=== PATIENT | female | born 1985 | race Caucasian/White ===

== ENCOUNTER → 2018-02-14 18:47 | Outpatient (CLI) | payer OTHER, SELFPAY ==
[2018-02-14 21:15] LABS: Chlamydia Trachomatis by PCR Negative (Negative); Neisserai gonorrhoeae by PCR Negative (Negative); Probe Check PASS; Sample Adequacy Control PASS; Specimen Processing Control PASS
[2018-02-19 10:36] LABS: HPV APTIMA, High Risk Negative (Negative)
== END ==
PROVIDERS: Family Provider Family Medicine; PCP Family Medicine; Visit Provider Nurse Practitioner Women's Health
DX: Z11.3 Encounter for screening for infections with a predominantly sexual mode of transmission (principal); Z12.4 Encounter for screening for malignant neoplasm of cervix
CPT/HCPCS: 87491; 87591; 88175; G0145

== ENCOUNTER → 2018-02-26 14:03 | Outpatient (CLI) | payer OTHER, SELFPAY | PROVIDERS: Visit Provider Physician Assistant Surgical | DX: J02.9 Acute pharyngitis, unspecified (principal) | CPT/HCPCS: 87081 ==

== ENCOUNTER → 2019-08-04 08:06 | Outpatient (CLI) | payer OTHER, SELFPAY ==
[2018-02-26 16:52] VITALS: BMI 45.4
[2019-08-04 09:49] LABS: Ferritin 53 ng/mL (8-252); Free T3 2.7 pg/mL (2.18-3.98); Iron 24 ug/dL (50-170); T4 Free Direct 1.01 ng/dL (0.76-1.46); Thyroid Stim Hormone (TSH) 1.81 uIU/mL (0.358-3.74)
[2019-08-04 10:52] LABS: Vitamin B12 393 pg/mL (211-911); Vitamin D,25 Hydroxy 15.2 ng/mL (29.95-100.01)
== END ==
PROVIDERS: Family Provider Family Medicine; PCP Family Medicine; Referring Provider Family Medicine; Visit Provider Family Medicine
DX: D64.9 Anemia, unspecified (principal); G25.81 Restless legs syndrome; E87.6 Hypokalemia
CPT/HCPCS: 36415; 82306; 82607; 82728; 83540; 84439; 84443; 84481

== ENCOUNTER 2019-12-26 11:01 | Emergency (ER) | payer OTHER, SELFPAY ==
[2019-11-06 17:19] VITALS: BMI 45.4
[2019-12-26 11:03] VITALS: BP 86/44; PULSE 83; RESP 17; TEMP 36.6; O2SAT 97; BMI 46.8
--- NOTE | 2019-12-26 11:17 | ED.VISSUMM ---
- ER Visit Summary Date of Service: 12/26/19 Chief Complaint: Dizziness History of Present Illness: The patient is a 34 F who presents with dizziness that began today while she was at work. Patient describes her dizziness as a swimming sensation in her head. Patient states this is worse with walking, standing, and movement of her head. Patient states it is better with sitting. Patient is on Zithromax for a recent upper respiratory infection. Patient denies any fevers or chills. Patient admits to recent cough and sore throat. Patient denies any tinnitus or hearing changes. Patient does admit to some nausea but denies any vomiting. Patient also admits to a headache. Physical Examination: Vital signs are stable. Patient is afebrile. Patient is in no acute distress. Pupils are equal, round, and reactive to light bilaterally. Extraocular muscles are intact. There is no nystagmus noted. Oral mucosa is pink and moist. Oropharynx is clear. Tympanic membranes are clear bilaterally. Neck is supple. Trachea is midline. There is no JVD noted. Heart was regular rate and rhythm. Lungs are clear and equal bilaterally. Abdomen is soft. Bowel sounds are normal. There is no tenderness. Cranial nerves II through XII are intact. There are no focal motor or sensory deficits noted. Test Results: CBC, comprehensive metabolic profile, urinalysis, and serum hCG were obtained and were all within normal limits. Orthostatic vital signs were obtained and were negative. CT scan of the brain was obtained. There is opacification of the right maxillary sinus and left sphenoid sinus but there is no acute intracranial abnormality. This was interpreted by the radiologist and reviewed by myself. Emergency Department Course and Treatment: Patient was given IV fluids. Patient was given a dose of meclizine. Patient was feeling better on reevaluation. Patient was instructed to drink plenty of fluids. Patient was given a prescription for meclizine to take as needed. Patient was instructed to follow-up with her primary care physician in 5-7 days. Patient understood and was agreeable with the plan. All questions were answered. Disposition: Discharge home Impression: Vertigo This note was generated with [employer] software. It may contain incorrect words, spelling, and punctuation that were not noted in review of the chart prior to signing ED Disposition - Plan for ED Patient: Disposition: Home or Assisted Living Diagnosis: Vertigo Instructions: VERTIGO, Unspecified Prescriptions: Meclizine HCl 25 mg PO TID PRN PRN #20 tab PRN Reason: Dizziness Prescription Printed Referrals: Sue Mayo DO [Primary Care Provider] - 5-7 Days
--- NOTE | 2019-12-26 11:20 | CT_ITS ---
STUDY: CT BRAIN WITHOUT CONTRAST REASON FOR EXAM: Female, 34 years old. HEADACHE, DIZZINESS, NAUSEA RADIATION DOSAGE (If Supplied By Facility): CTDIvol = ( 44.99 ) mGy, DLP = ( 745.49 ) mGycm TECHNIQUE: Transaxial CT imaging of the brain was performed without administration of intravenous contrast material. Individualized dose optimization techniques were used for this CT. COMPARISON: No relevant priors. FINDINGS: Normal soft tissue structures. Normal calvarium. Normal size ventricles and extra-axial spaces for the patient''s age. Normal white matter tracts of the cerebral hemispheres. Normal basal ganglia and thalami. Normal brainstem. Normal cerebellum. There is no intracranial hemorrhage. There are no findings of an acute ischemic infarction. Opacification of the right maxillary sinus. Partial opacification of the left sphenoid sinus. CT/Brain/Head without Contrast IMPRESSION: Opacification of the right maxillary sinus and partial opacification of the left sphenoid sinus. Electronically Signed: Fredis Elkins, at 12:08 EST , Service support ,
[2019-12-26 11:38] VITALS: BP 130/52; BP 131/69; BP 140/83; PULSE 75; PULSE 81; PULSE 88
[2019-12-26 11:43] LABS: Bacteria 0 SEEN /hpf (None Seen); Mucous, Urine 0 SEEN /hpf (<or=2+); Red Blood Cells-Urine 0 SEEN /hpf (0-5); White Blood Cells 0 SEEN /hpf (0-5)
[2019-12-26] MEDS: 0.9% Normal Saline 1,000 ML 1000 ML IV (11:50)
[2019-12-26 11:52] LABS: Absolute Lymphocyte Count 2.77 X10^3/uL (0.83-4.51); Absolute Neutrophil Count 7.6 X10^3/uL (2.0-7.7); Basophil# 0.04 X10^3/uL; Basophil% 0.4 % (0-1); Eosinophil# 0.11 X10^3/uL; Hematocrit 40.4 % (37-47); Hemoglobin 12.5 g/dL (12.0-15.0); Lymphocyte # 2.77 X10^3/ul (4.0); Mean Corp Hgb Conc 30.9 g/dL (32-36); Mean Corpuscular Hgb 25.2 pg (27.0-32.0); Mean Corpuscular Volume 81.3 fL (81-99); Mean Platelet Vol. 8.8 fl (6.2-12.0); Monocyte# 0.53 X10^3/uL; Monocyte% 4.8 % (0-10); NRBC Flagged by Analyzer 0 % (0-5); Neutrophil # 7.58 X10^3/uL (2.7-7.7); Neutrophil % 68.5 % (47-70); Platelet Count 416 K/mm3 (150-450); RBC Distribution Width CV 15.6 % (11.6-14.6); RBC Distribution Width SD 45.9 fl (35.1-43.9); Red Blood Count 4.97 M/mm3 (4.2-5.4); White Blood Count 11.1 K/mm3 (4.4-11.0)
[2019-12-26 12:01] LABS: Color, Urine Yellow (Yellow); Glucose, Dipstick Normal (Normal); Ketone-Dipstick Negative (Negative); Leukocyte Esterase-Dipstick Negative /ul (Negative); Nitrite-Dipstick Negative (Negative); Occult Blood-Urine 10 /ul (Negative); Protein-Dipstick Negative (Negative); Specific Gravity, Urine 1.015 (1.002-1.030); Urine Bilirubin Dipstick Negative (Negative); Urine Clarity Clear (Clear); Urine Urobilinogen Normal (Normal)
[2019-12-26 12:03] LABS: Internal QC Validated? YES +Cl - CLEAR BKGD; Pregnancy, Serum, hCG Quali. NEGATIVE Negative
[2019-12-26 12:06] LABS: ALB/GLOB Ratio 0.8 RATIO (0.9-2.4); AST(SGOT) 14 U/L (15-37); Alanine Aminotransfer ALT/SGPT 40 U/L (13-56); Albumin, Serum 3.3 g/dL (3.2-5.0); Alkaline Phosphatase 91 U/L (45-117); Anion Gap 5 (5-15); BUN 13 mg/dL (7-18); BUN/Creat Ratio 15.2 RATIO (10-20); Calcium,Total 8.9 mg/dL (8.5-10.1); Chloride 108 mmol/L (98-107); Creatinine, Serum 0.86 mg/dL (0.55-1.02); EST Glomerular Filtration Rate 81 mL/min (>60); Est Glom Filt Rate - Afr Amer 98 mL/min (>60); Estimated Creatinine Clearance 101.56 ml/min; Globulin 4.2 g/dL (2.2-4.2); Glucose 97 mg/dL (74-106); Potassium 3.6 mmol/L (3.5-5.1); Protein, Total 7.5 g/dL (6.4-8.2); Sodium Level 140 mmol/L (136-145)
[2019-12-26 12:20] LABS: Squamous Epithelial Cells - UA 0-5 SEEN /hpf (5-10)
[2019-12-26 12:42] VITALS: BP 132/64; PULSE 66; RESP 18; O2SAT 98
[2019-12-26] MEDS: Meclizine HCl 25 MG Tablet PO (12:45)
== END 2019-12-26 13:26 | disposition home or self-care (01) ==
PROVIDERS: Emergency Provider Emergency Medicine; PCP Family Medicine
DX: R42 Dizziness and giddiness (principal); R05 Cough; J02.9 Acute pharyngitis, unspecified; E66.9 Obesity, unspecified; I10 Essential (primary) hypertension; G43.909 Migraine, unspecified, not intractable, without status migrainosus; Z79.82 Long term (current) use of aspirin; Z79.899 Other long term (current) drug therapy
CPT/HCPCS: 70450; 80053; 81001; 84703; 85025; 96360; 99283; J7030; A4216

== ENCOUNTER → 2021-03-28 12:51 | Outpatient (CLI) | payer OTHER, SELFPAY ==
[2021-03-16 09:03] VITALS: BMI 46.2
--- NOTE | 2021-03-28 12:55 | ECHOD_ITS ---
Reason For Study: HTN, ARRHYTHMIA (ABN EKG) Procedure This was a 2D Doppler, Color Flow transthoracic echocardiogram. Exam performed in department. Left Ventricle Normal LV size. Left ventricular systolic function is normal. The estimated ejection fraction is 60 %. Normal diastology for age. No regional wall motion abnormalities noted. Right Ventricle Normal RV size. Normal systolic function. Atria Normal left atrium. Normal right atrium. Mitral Valve Normal mitral valve. Tricuspid Valve Normal tricuspid valve. Mild (1+) tricuspid valve insufficiency. Pulmonary artery systolic pressure is 28 mmHg. Aortic Valve Normal aortic valve. Trisinus/trileaflet aortic valve. Pulmonic Valve The pulmonic valve is not well visualized. Great Vessels Normal aortic root. The pulmonary artery is normal size. Normal inferior vena cava. Pericardium/Pleural No pericardial effusion. MMode/2D Measurements & Calculations LVIDd: 5.5 cm IVSd: 1.1 cm Ao root diam: 3.2 cm LVIDs: 3.7 cm LVPWd: 1.1 cm RVDd: 3.7 cm FS: 32.5 % LAV(MOD-bp): 58.0 ml LA A4 area: 19.0 cm2 LA dimension(2D): 4.5 cm LAV(MOD-bp) Indexed: 22.7 ml/m2 LAV(MOD-sp2): 60.7 ml LAV(MOD-sp4): 56.1 ml RA A4 area: 16.3 cm2 Time Measurements MV dec time: 0.17 sec Doppler Measurements & Calculations MV E max gus: 86.8 cm/sec Lat Peak E' Gus: 12.5 cm/sec Med Peak E' Gus: 9.2 cm/sec MV A max gus: 58.3 cm/sec E/E' lat: 6.9 E/E' med: 9.5 MV E/A: 1.5 Ao V2 max: 139.9 cm/sec LV V1 max: 98.0 cm/sec PA V2 max: 113.4 cm/sec Ao max P.8 mmHg LV V1 max P.8 mmHg TR max gus: 247.1 cm/sec TR max P.4 mmHg ECHO/Echo Complete Interpretation Summary Normal LV size. Left ventricular systolic function is normal. The estimated ejection fraction is 60 %. Normal diastology for age. Mild (1+) tricuspid valve insufficiency. Ordering Physician: Jose Cameron Referring Physician: Sue Mayo Performed By: Sujata Miller, MARYBELCS, RVT
== END ==
PROVIDERS: PCP Family Medicine; Referring Provider Internal Medicine Cardiovascular Disease; Visit Provider Internal Medicine Cardiovascular Disease
DX: R94.31 Abnormal electrocardiogram [ECG] [EKG] (principal); I10 Essential (primary) hypertension
CPT/HCPCS: 93225; 93226; 93306

== ENCOUNTER → 2021-06-27 07:04 | Outpatient (CLI) | payer OTHER, SELFPAY ==
[2021-05-23 08:47] VITALS: BMI 46.2
== END ==
PROVIDERS: PCP Family Medicine; Referring Provider Internal Medicine Cardiovascular Disease; Visit Provider Internal Medicine Cardiovascular Disease
DX: Z00.00 Encounter for general adult medical examination without abnormal findings (principal)

== ENCOUNTER → 2021-10-18 10:41 | Outpatient (CLI) | payer OTHER, SELFPAY | PROVIDERS: PCP Family Medicine; Visit Provider Family Medicine | DX: Z20.828 Contact with and (suspected) exposure to other viral communicable diseases (principal) | CPT/HCPCS: 87635; C9803; U0005; U0003 ==

== ENCOUNTER → 2021-10-24 12:44 | Outpatient (CLI) | payer OTHER, SELFPAY ==
--- NOTE | 2021-10-24 12:54 | RAD_ITS ---
STUDY: X-RAY CHEST REASON FOR EXAM: Female, 36 years old. Fever and cough TECHNIQUE: PA and lateral views of the chest. COMPARISON: None. FINDINGS: The lungs are clear and expanded. There is no demonstrated pleural abnormality. Normal size heart. Normal mediastinum and kayy. Normal visualized pulmonary arteries. Normal visualized aortic arch and descending thoracic aorta. Normal visualized thoracic spine. Normal visualized ribs, clavicles, and shoulders. There is no demonstrated abnormality of the visualized soft tissue structures of the upper abdomen. RAD/Chest PA and Lateral IMPRESSION: Normal x-ray examination of the chest. Electronically Signed: Manjinder Armenta MD at 17:02 EST , Service support ,
== END ==
PROVIDERS: PCP Family Medicine; Referring Provider Family Medicine; Visit Provider Family Medicine
DX: R06.00 Dyspnea, unspecified (principal); R05.9 Cough, unspecified
CPT/HCPCS: 71046

== ENCOUNTER 2021-11-21 17:25 | Outpatient (CLI) | payer OTHER, SELFPAY ==
[2021-11-21] MEDS: 0.9% Saline Lock 10 ML Syringe IV (17:54)
[2021-11-21 17:57] VITALS: BP 158/96; PULSE 101; RESP 16; TEMP 36.8; O2SAT 98; BMI 47.3
[2021-11-21 18:56] VITALS: BP 142/79; PULSE 88; RESP 16; TEMP 36.8; O2SAT 99
[2021-11-21 20:19] VITALS: BP 140/107; PULSE 86; RESP 16; TEMP 36.6; O2SAT 100
== END 2021-11-21 23:59 | disposition home or self-care (01) ==
LOC: MS3OUT 17:25 → MS3 17:26
PROVIDERS: PCP Family Medicine; Referring Provider Nurse Practitioner Adult Health; Visit Provider Nurse Practitioner Adult Health
DX: U07.1 COVID-19 (principal)
CPT/HCPCS: J7050; M0243; A4216; Q0244

== ENCOUNTER 2022-02-01 13:04 | Emergency (ER) | payer OTHER, SELFPAY ==
[2022-02-01 13:05] VITALS: BP 186/120; PULSE 101; RESP 18; TEMP 36.4; O2SAT 100; BMI 45.9
[2022-02-01 13:14] VITALS: BP 138/84; PULSE 91; RESP 16; O2SAT 98
--- NOTE | 2022-02-01 13:20 | EKG12_ITS ---
Test Reason : HT Blood Pressure : / mmHG Vent. Rate : 085 BPM Atrial Rate : 085 BPM P-R Int : 236 ms QRS Dur : 088 ms QT Int : 388 ms P-R-T Axes : 029 024 026 degrees QTc Int : 461 ms Sinus rhythm with 1st degree A-V block Otherwise normal ECG Confirmed by JUDY STEELE, RUBÉN ([id number]), legal editor AINSLEY RAMIREZ ([id number]) on 02/03/2022 8:41:23 AM Referred By: DEAN FENG Confirmed By:RUÉBN KIM MD
--- NOTE | 2022-02-01 13:21 | EDS_ITS ---
HPI History of Present Illness Chief Complaint: Hypertension Detail of Chief Complaint: Dizziness, elevated blood pressure, left ear pain Informant: patient Narrative Narrative: Patient presents to the emergency department with concern for high blood pressure. 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 Patient states that she started feeling lightheaded and developed a pain and pressure in her left ear. Patient then had somebody check her blood pressure and was told that it was 180/120. Patient does have history of hypertension but did not take her blood pressure medicine this morning. Patient states she has been under increased stress at work. Patient does have history of migraines. She currently just describes a minimal dull ache in her head. Patient denies recent illness. She denies chest pain or shortness of breath or palpitations. Prior similar symptoms: No PFSH PFSH Medical History Chronic headaches Contraception management Essential (primary) hypertension Hypokalemia Lupus anticoagulant disorder Morbid obesity Restless legs Home Medications sertraline 50 mg tablet 50 mg PO QDAY 02/14/18 [History Last Taken Unknown] topiramate 100 mg tablet 100 mg PO BID 02/14/18 [History Last Taken Unknown] ferrous sulfate 325 mg (65 mg iron) tablet 325 mg PO DAILY tab 03/16/21 [History Last Taken Unknown] losartan 100 mg tablet 100 mg PO DAILY #90 tab 03/16/21 [Rx Last Taken Unknown] copper 380 square mm intrauterine device 1 device INTRAUTERINE ONCE 06/29/21 [History Last Taken Unknown] ropinirole 0.5 mg tablet 0.5 mg PO BID tab 06/29/21 [History Last Taken Unknown] clotrimazole-betamethasone 1 applic TOPICAL BID PRN 11/21/21 [History Last Taken Unknown] ergocalciferol (vitamin D2) [Vitamin D2] 1,250 mcg PO TU 11/21/21 [History Last Taken Unknown] Allergy/AdvReac Type Severity Reaction Status Date / Time No Known Allergies Allergy Verified 02/01/22 13:05 Family History Father Hypertension Heart disease CAD (coronary artery disease), Onset Age: 35 Stents and CABG Mother Diabetes Social History Smoking Status: Never smoker alcohol intake: current details: occasionally substance use type: does not use caffeine: Yes what type of physical activity do you participate in: walking frequency: 1-2 times per week seatbelt use: always do you feel safe at home: Yes additional social history: 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[employer] ROS ED Constitutional Constitutional ED: Reports systems reviewed and no addt'l complaints, except as documented; Denies body ache(s), change in weight or chills Eyes Eyes: Denies acute decrease in peripheral vision, change in vision, double vision or loss of vision ENT ENT ED: Reports none and other Details: Left ear pain ; Denies ear pain, lip swelling, loss taste/smell, neck pain, otalgia or sore throat Cardiovascular Cardiovascular: Reports none; Denies abdominal pain, chest pain with activity, leg edema, lightheadedness, palpitations, rapid heart rate or syncope Respiratory/Chest Respiratory/Chest: Reports none; Denies change in mental status, dry cough, dyspnea, hemoptysis, shortness of breath at rest or shortness of breath with exertion Gastrointestinal Gastrointestinal: Reports none; Denies abdominal pain, change in stool character, diarrhea, hematemesis, hematochezia, melena, rectal bleeding or vomiting Genitourinary Genitourinary ED: Reports none; Denies abdominal discomfort, anuria, dysuria, genital pain or polyuria Musculoskeletal Musculoskeletal: Reports none; Denies arthralgias, back pain, difficulty walking, extremity pain, muscle weakness or myalgias Integumentary Reports none; Denies abscess or rash Neurologic Neurologic: Reports none and headache(s); Denies abnormal gait, confusion, focal weakness, frequent falls, loss of vision, numbness, paresthesias, radicular pain, vertigo or weakness Psychiatric Psychiatric: Reports systems reviewed and no addt'l complaints, except as documented and none; Denies behavioral changes, confusion, difficulty concentrating, hallucinations, suicidal ideation, tactile hallucinations or visual hallucinations Endocrine Endocrinology: Denies none, cold intolerance, excessive sweating, fatigue or heat intolerance Hematologic/Lymphatic Hematologic/Lymphatic: Reports none; Denies anemia, easy bleeding or easy bruising Allergic/Immunologic Allergic/Immunologic ED: Denies as per HPI, none, lip swelling, mouth swelling, throat swelling, tongue swelling or hives EXAM Physical Exam Const Vital Signs: 02/01/22 13:05 02/01/22 13:14 02/01/22 13:16 Temperature 97.6 F L Temperature Source Temporal Pulse Rate 101 H 91 Respiratory Rate 18 16 Respiratory Effort Normal Respiratory Pattern Normal Blood Pressure 186/120 H 138/84 H Blood Pressure Mean 142 102 Pulse Ox 100 98 Oxygen Delivery Method Room Air Room Air Positive well nourished and well developed General Appearance ED: well developed and NAD HEENT Reports TM's clear and moist mucous membranes normocephalic and atraumatic; Negative for trauma or tenderness Tympanic Membrane ED: Yes TM's clear Eyes PERRL and EOMs intact bilaterally General Eye ED: Negative for pale conjunctiva or scleral icterus Neck no lymphadenopathy, supple and no JVD General: Negative for tenderness Chest Wall inspection of chest normal and palpation of chest normal Chest: Negative for tenderness Resp normal respiratory effort and clear to auscultation bilaterally Effort and Inspection: Negative for respiratory distress or pain with movement Auscultation: Negative for rhonchi, wheezes or diminished lung sounds Cardio regular rate, regular rhythm, S1 normal heart sound, S2 normal heart sound and no murmurs Peripheral Pulses: pulses 2+ throughout GI normal to inspection, nondistended, normoactive bowel sounds, soft to palpation, non-tender, non-distended and no masses Back/Spine no CVA tenderness and no thoracic nor lumbar tenderness Extremity normal to inspection General Extremety ED: Negative for edema General Extremity: Negative for edema Neuro oriented x3, CN's II-XII intact bilaterally, no sensory deficits noted and gait normal Sensorium / Orientation: awake, alert, oriented to person, oriented to place and oriented to time Motor Exam: strength 5/5 throughout and strength abnormal Psych mental status grossly normal Skin no rashes or lesions noted and no wounds MDM MDM MDM Narrative Medical decision making narrative: IV line established on arrival. Patient was placed on a potline monitor. I did give her a dose of her losartan which she did not take this morning. Her blood pressure did improve significantly and now is in the 130s to 140s systolic with diastolics in the 80s and 70s. Her head feels markedly improved and overall she feels well. At this point I will discharge her to home. She is advised to follow-up with her primary care physician within next 3 to 5 days. Lab Data Attestation: I reviewed the patient's lab results. Labs: Laboratory Results - last 24 hr 02/01/22 02/01/22 02/01/22 13:20 13:30 13:30 WBC 10.1 RBC 4.61 Hgb 12.0 Hct 37.0 MCV 80.3 L MCH 26.0 L MCHC 32.4 RDW Std Deviation 44.8 H RDW Coeff of Matheus 15.6 H Plt Count 351 MPV 9.1 Immature Gran % (Auto) 0.200 Neut % (Auto) 76.3 H Lymph % (Auto) 16.9 L [place] % (Auto) 5.4 Eos % (Auto) 0.9 Baso % (Auto) 0.3 Absolute Neuts (auto) 7.7 Absolute Lymphs (auto) 1.71 Nucleated RBC % 0 Sodium 140 Potassium 3.3 L Chloride 105 Carbon Dioxide 28.0 Anion Gap 7 BUN 12 Creatinine 0.75 Estim Creat Clear Calc 114.29 Est GFR (MDRD) Af Amer 114 Est GFR (MDRD) Non-Af 94 BUN/Creatinine Ratio 16.0 Glucose 101 Calcium 9.0 Serum , Qual NEGATIVE Urine Color Urine Clarity Urine pH Ur Specific [place] Urine Protein Urine Glucose (UA) Urine Ketones Urine Occult Blood Urine Nitrite Urine Bilirubin Urine Urobilinogen Ur Leukocyte Esterase Urine RBC Urine WBC Ur Squamous Epith Cells Urine Bacteria Urine Mucus 02/01/22 13:35 WBC RBC Hgb Hct MCV MCH MCHC RDW Std Deviation RDW Coeff of Matheus Plt Count MPV Immature Gran % (Auto) Neut % (Auto) Lymph % (Auto) [place] % (Auto) Eos % (Auto) Baso % (Auto) Absolute Neuts (auto) Absolute Lymphs (auto) Nucleated RBC % Sodium Potassium Chloride Carbon Dioxide Anion Gap BUN Creatinine Estim Creat Clear Calc Est GFR (MDRD) Af Amer Est GFR (MDRD) Non-Af BUN/Creatinine Ratio Glucose Calcium Serum , Qual Urine Color Yellow Urine Clarity Clear Urine pH 5.0 Ur Specific [place] 1.025 Urine Protein 15 H Urine Glucose (UA) Normal Urine Ketones 5 H Urine Occult Blood 250 H Urine Nitrite Negative Urine Bilirubin Negative Urine Urobilinogen Normal Ur Leukocyte Esterase 25 H Urine RBC 25-50 SEEN Urine WBC 0 SEEN Ur Squamous Epith Cells 0 SEEN Urine Bacteria 0 SEEN Urine Mucus 0 SEEN EKG Initial EKG: Attestation: I personally reviewed and interpreted this EKG as follows: Comments: Sinus rhythm with a rate of 85 bpm with first-degree AV block Discharge Plan Triage Chief Complaint: Hypertension ED Provider: Rose Ramos Dx/Rx/DC Orders Clinical Impression: Hypertension Instructions: ED Hypertension, Established Prescriptions: No Action topiramate [Topamax] 100 mg tablet 100 mg PO BID RF: 0 sertraline [Zoloft] 50 mg tablet 50 mg PO QDAY RF: 0 ropinirole [Requip] 0.5 mg tablet 0.5 mg PO BID RF: 0 ParaGard T 380A 380 square mm intrauterine device 1 device intrauterine ONCE RF: 0 losartan 100 mg tablet 100 mg PO DAILY Qty: 90 RF: 3 ferrous sulfate 325 mg (65 mg iron) tablet 325 mg PO DAILY RF: 0 clotrimazole-betamethasone 1-0.05 % cream 1 applic topical BID PRN (Reason: .) RF: 0 ergocalciferol (vitamin D2) [Vitamin D2] 1,250 mcg (50,000 unit) Capsule 1,250 mcg PO TU RF: 0 Primary Care Provider: Sue Mayo Referrals: Sue Mayo DO [Primary Care Provider] - 3-5 Days Disposition Disposition: Home, Self Care
--- NOTE | 2022-02-01 13:25 | NURSING ---
NO OLD EKGS
[2022-02-01] MEDS: Losartan Potassium 100 MG Tablet PO (13:38)
[2022-02-01 13:39] LABS: Absolute Lymphocyte Count 1.71 X10^3/uL (0.83-4.51); Absolute Neutrophil Count 7.7 X10^3/uL (2.0-7.7); Basophil# 0.03 X10^3/uL; Basophil% 0.3 % (0-1); Eosinophil# 0.09 X10^3/uL; Eosinophils% 0.9 % (0-5); Lymphocyte # 1.71 X10^3/ul (0.83-4.51); Lymphocyte % 16.9 % (19-41); Mean Corp Hgb Conc 32.4 g/dL (32-36); Mean Corpuscular Volume 80.3 fL (81-99); Mean Platelet Vol. 9.1 fl (6.2-12.0); Monocyte# 0.55 X10^3/uL; Monocyte% 5.4 % (0-10); NRBC Flagged by Analyzer 0 % (0-5); Neutrophil # 7.74 X10^3/uL (2.7-7.7); Neutrophil % 76.3 % (47-70); Platelet Count 351 K/mm3 (150-450); RBC Distribution Width CV 15.6 % (11.6-14.6); RBC Distribution Width SD 44.8 fl (35.1-43.9); Red Blood Count 4.61 M/mm3 (4.2-5.4); White Blood Count 10.1 K/mm3 (4.4-11.0)
[2022-02-01] MEDS: 0.9% Normal Saline 1,000 ML 150 ML IV (13:42)
[2022-02-01 13:48] LABS: Bacteria 0 SEEN /hpf (None Seen); Mucous, Urine 0 SEEN /hpf (<or=2+); Squamous Epithelial Cells - UA 0 SEEN /hpf (5-10); White Blood Cells 0 SEEN /hpf (0-5)
[2022-02-01 13:49] LABS: Color, Urine Yellow (Yellow); Glucose, Dipstick Normal (Normal); Ketone-Dipstick 5 mg/dl (Negative); Leukocyte Esterase-Dipstick 25 /ul (Negative); Nitrite-Dipstick Negative (Negative); Occult Blood-Urine 250 /ul (Negative); Protein-Dipstick 15 mg/dl (Negative); Specific Gravity, Urine 1.025 (1.002-1.030); Urine Bilirubin Dipstick Negative (Negative); Urine Clarity Clear (Clear); Urine Urobilinogen Normal (Normal)
[2022-02-01 13:49] LABS: Internal QC Validated? YES +Cl - CLEAR BKGD; Pregnancy, Serum, hCG Quali. NEGATIVE Negative
[2022-02-01 13:53] LABS: Anion Gap 7 (5-15); BUN 12 mg/dL (7-18); Chloride 105 mmol/L (98-107); Creatinine, Serum 0.75 mg/dL (0.55-1.02); EST Glomerular Filtration Rate 94 mL/min (>60); Est Glom Filt Rate - Afr Amer 114 mL/min (>60); Estimated Creatinine Clearance 114.29 ml/min; Glucose 101 mg/dL (74-106); Potassium 3.3 mmol/L (3.5-5.1); Sodium Level 140 mmol/L (136-145)
[2022-02-01 13:55] LABS: Red Blood Cells-Urine 25-50 SEEN /hpf (0-5)
[2022-02-01] MEDS: Potassium Chloride Oral Tablet 20 MEQ 40 MEQ PO (14:23)
[2022-02-01 14:27] VITALS: BP 138/66; PULSE 79; RESP 15; O2SAT 98
== END 2022-02-01 14:27 | disposition home or self-care (01) ==
PROVIDERS: Emergency Provider Emergency Medicine; PCP Family Medicine; Visit Provider Emergency Medicine
DX: I10 Essential (primary) hypertension (principal); E66.01 Morbid (severe) obesity due to excess calories; Z68.42 Body mass index [BMI] 45.0-49.9, adult; D68.62 Lupus anticoagulant syndrome; Z79.01 Long term (current) use of anticoagulants; Z79.899 Other long term (current) drug therapy; G43.909 Migraine, unspecified, not intractable, without status migrainosus; I44.0 Atrioventricular block, first degree
CPT/HCPCS: 80048; 81001; 84703; 85025; 93005; 96360; 99284; J7030; A4216

== ENCOUNTER 2022-08-24 19:34 | Emergency (ER) | payer OTHER, SELFPAY ==
[2022-08-24 19:34] VITALS: BP 169/105; PULSE 96; RESP 18; TEMP 36.4; O2SAT 100; BMI 43.0
--- NOTE | 2022-08-24 19:38 | EKG12_ITS ---
Test Reason : SOB Blood Pressure : / mmHG Vent. Rate : 102 BPM Atrial Rate : 102 BPM P-R Int : 218 ms QRS Dur : 080 ms QT Int : 336 ms P-R-T Axes : 025 016 044 degrees QTc Int : 437 ms Sinus tachycardia with 1st degree A-V block Otherwise normal ECG Confirmed by CARLEY STEELE, ALEJANDRO ([id number]), online content editor AINSLEY RAMIREZ ([id number]) on 08/28/2022 10:12:36 AM Referred By: Confirmed By:SKYLAR HOWE MD
--- NOTE | 2022-08-24 19:43 | RAD_ITS ---
INDICATION: sob EXAMINATION/TECHNIQUE: X-RAY - XR Chest 1 View COMPARISON: 10/24/2021 FINDINGS: LIFE-SUPPORT AND LINES: 1. None HEART AND VESSELS: The cardiac silhouette, pulmonary vasculature have normal appearance. No evidence of congestive failure. LUNGS AND PLEURAL SPACES: Lungs are clear. No focal infiltrate, consolidation or effusions. No evidence of pneumothorax. No pulmonary mass is noted. MEDIASTINUM AND HILAR REGIONS: No masses adenopathy noted. No areas of calcification. Visualized upper airway is normal in position. BONY ELEMENTS: No acute bony changes noted. RAD/Chest 1 View (Portable) IMPRESSION: 1. No evidence of acute cardiopulmonary process Electronically Signed: Watson Cosby MD at 20:04 EDT ,
[2022-08-24 21:12] LABS: Absolute Lymphocyte Count 2.18 X10^3/uL (0.83-4.51); Basophil# 0.04 X10^3/uL; Basophil% 0.4 % (0-1); Eosinophil# 0.21 X10^3/uL; Eosinophils% 1.9 % (0-5); Hematocrit 40.2 % (37-47); Hemoglobin 12.2 g/dL (12.0-15.0); Lymphocyte # 2.18 X10^3/ul (0.83-4.51); Lymphocyte % 19.6 % (19-41); Mean Corp Hgb Conc 30.3 g/dL (32-36); Mean Corpuscular Hgb 24.7 pg (27.0-32.0); Mean Corpuscular Volume 81.5 fL (81-99); Mean Platelet Vol. 8.9 fl (6.2-12.0); Monocyte# 0.62 X10^3/uL; Monocyte% 5.6 % (0-10); NRBC Flagged by Analyzer 0 % (0-5); Neutrophil # 8.02 X10^3/uL (2.7-7.7); Neutrophil % 72.2 % (47-70); Platelet Count 379 K/mm3 (150-450); RBC Distribution Width CV 16.8 % (11.6-14.6); RBC Distribution Width SD 49.4 fl (35.1-43.9); Red Blood Count 4.93 M/mm3 (4.2-5.4); White Blood Count 11.1 K/mm3 (4.4-11.0)
[2022-08-24 21:32] LABS: Anion Gap 6 (5-15); BUN 16 mg/dL (7-18); BUN/Creat Ratio 23.4 RATIO (10-20); Calcium,Total 8.8 mg/dL (8.5-10.1); Chloride 109 mmol/L (98-107); Creatinine, Serum 0.68 mg/dL (0.55-1.02); EST Glomerular Filtration Rate 104 mL/min (>60); Est Glom Filt Rate - Afr Amer 126 mL/min (>60); Estimated Creatinine Clearance 124.87 ml/min; Glucose 102 mg/dL (74-106); Potassium 3.7 mmol/L (3.5-5.1); Sodium Level 140 mmol/L (136-145)
--- NOTE | 2022-08-24 22:05 | EX.ED.DYSGE1 ---
HPI History of Present Illness Chief Complaint: Shortness of Breath Detail of Chief Complaint: Back pain, shortness of breath, cough Informant: patient Onset/Context/Timing Onset: Days Context: Gradual Onset Current Severity: Mild Maximum Severity: Moderate Narrative Narrative: Patient presents with pain around the left shoulder blade. Pain is worse with a deep breath. She tried to lay down tonight but could not get comfortable. She has had recent URI symptoms with cough and congestion. No fever noted. She was seen at urgent care earlier today and given a prescription for Augmentin and Tessalon. She does have lupus anticoagulant and her father has a history of heart problems. In light of this she presented to ensure there is no evidence of heart issue or blood clot. [facility] Medical History Acute bronchitis, unspecified BMI greater than 40 Chronic headaches Contraception management COVID-19 (11/21/21) Essential (primary) hypertension Hypokalemia Lupus anticoagulant disorder Morbid obesity Restless legs Home Medications sertraline 50 mg tablet (Zoloft) 50 mg PO QDAY 02/14/18 [History Last Taken Unknown] topiramate 100 mg tablet (Topamax) 100 mg PO BID 02/14/18 [History Last Taken Unknown] ferrous sulfate 325 mg (65 mg iron) tablet 325 mg PO DAILY 03/16/21 [History Last Taken Unknown] losartan 100 mg tablet 100 mg PO DAILY #90 tabs 03/16/21 [Rx Last Taken Unknown] copper 380 square mm intrauterine device (ParaGard T 380A) 1 device intrauterine ONCE 06/29/21 [History Last Taken Unknown] ropinirole 0.5 mg tablet (Requip) 0.5 mg PO BID 06/29/21 [History Last Taken Unknown] clotrimazole-betamethasone 1 %-0.05 % topical cream 1 applic topical BID PRN . 11/21/21 [History Last Taken Unknown] ergocalciferol (vitamin D2) 1,250 mcg (50,000 unit) capsule (Vitamin D2) 1,250 mcg PO TU 11/21/21 [History Last Taken Unknown] amlodipine 5 mg tablet 5 mg PO DAILY #90 tabs 03/16/22 [Rx Last Taken Unknown] azithromycin 250 mg tablet 250 mg PO QDAY #6 tabs 08/24/22 [Rx Last Taken Unknown] benzonatate 200 mg capsule 200 mg PO TID PRN cough #20 caps 08/24/22 [Rx Last Taken Unknown] Allergy/AdvReac Type Severity Reaction Status Date / Time No Known Allergies Allergy Verified 08/24/22 19:37 Family History Father Hypertension Heart disease CAD (coronary artery disease), Onset Age: 35 Stents and CABG Mother Diabetes Social History Smoking Status: Never smoker alcohol intake: current details: occasionally substance use type: does not use caffeine: Yes what type of physical activity do you participate in: walking frequency: 1-2 times per week seatbelt use: always do you feel safe at home: Yes additional social history: 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[employer] [facility] Constitutional Constitutional ED: Denies chills or fever(s) Eyes Eyes: Denies change in vision or discharge from eye(s) ENT ENT ED: Denies discharge from eye(s), rhinorrhea or sore throat Cardiovascular Cardiovascular: Denies chest pain or palpitations Respiratory/Chest Respiratory/Chest: Reports cough and dyspnea Gastrointestinal Gastrointestinal: Denies abdominal pain, diarrhea, nausea or vomiting Genitourinary Genitourinary ED: Denies difficulty urinating or dysuria Musculoskeletal Musculoskeletal: Reports back pain; Denies extremity pain Integumentary Denies Abrasions or rash Neurologic Neurologic: Denies headache(s) or weakness Allergic/Immunologic Allergic/Immunologic ED: Denies lip swelling or urticaria EXAM Physical Exam Const Vital Signs: 08/24/22 19:34 08/24/22 23:02 08/24/22 23:02 Temperature 97.6 F L Temperature Source Temporal Pulse Rate 96 Respiratory Rate 18 16 Respiratory Effort Respiratory Depth Respiratory Pattern Blood Pressure 169/105 H Blood Pressure Mean 126 Pulse Ox 100 99 99 Oxygen Delivery Method Room Air Room Air Room Air 08/24/22 23:02 Temperature Temperature Source Pulse Rate Respiratory Rate Respiratory Effort Normal Non-Labored Respiratory Depth Normal Respiratory Pattern Normal Blood Pressure Blood Pressure Mean Pulse Ox Oxygen Delivery Method Room Air Positive well nourished and well developed General Appearance ED: well developed HEENT Reports normocephalic and head/scalp atraumatic Eyes PERRL and EOMs intact bilaterally Neck supple Chest Wall inspection of chest normal and palpation of chest normal Resp normal respiratory effort and clear to auscultation bilaterally Cardio regular rate and regular rhythm GI normal to inspection, nondistended, normoactive bowel sounds Palpation: soft Back/Spine no CVA tenderness Back/Spine Narrative: No reproducible back pain. Extremity normal to inspection Neuro oriented x3 and no sensory deficits noted Sensorium / Orientation: alert Motor Exam: strength 5/5 throughout Psych mental status grossly normal Skin no rashes or lesions noted MDM MDM MDM Narrative Medical decision making narrative: Chest x-ray, EKG, lab work obtained per nursing protocol. At the time of my exam I added D-dimer, troponin. Lab Data Attestation: I reviewed the patient's lab results. Labs: Laboratory Results - last 24 hr 08/24/22 08/24/22 08/24/22 21:05 21:05 22:16 WBC 11.1 H RBC 4.93 Hgb 12.2 Hct 40.2 MCV 81.5 MCH 24.7 L MCHC 30.3 L RDW Std Deviation 49.4 H RDW Coeff of Matheus 16.8 H Plt Count 379 MPV 8.9 Immature Gran % (Auto) 0.300 Neut % (Auto) 72.2 H Lymph % (Auto) 19.6 [place] % (Auto) 5.6 Eos % (Auto) 1.9 Baso % (Auto) 0.4 Absolute Neuts (auto) 8.0 H Absolute Lymphs (auto) 2.18 Nucleated RBC % 0 D-Dimer Quant (PE/DVT) 0.51 H* Sodium 140 Potassium 3.7 Chloride 109 H Carbon Dioxide 25.0 Anion Gap 6 BUN 16 Creatinine 0.68 Estim Creat Clear Calc 124.87 Est GFR (MDRD) Af Amer 126 Est GFR (MDRD) Non-Af 104 BUN/Creatinine Ratio 23.4 H Glucose 102 Calcium 8.8 Troponin I High Sens Serum , Qual 08/24/22 08/24/22 22:16 22:24 WBC RBC Hgb Hct MCV MCH MCHC RDW Std Deviation RDW Coeff of Matheus Plt Count MPV Immature Gran % (Auto) Neut % (Auto) Lymph % (Auto) [place] % (Auto) Eos % (Auto) Baso % (Auto) Absolute Neuts (auto) Absolute Lymphs (auto) Nucleated RBC % D-Dimer Quant (PE/DVT) Sodium Potassium Chloride Carbon Dioxide Anion Gap BUN Creatinine Estim Creat Clear Calc Est GFR (MDRD) Af Amer Est GFR (MDRD) Non-Af BUN/Creatinine Ratio Glucose Calcium Troponin I High Sens 4 Serum , Qual NEGATIVE Radiography Chest X-Ray - ED: 1 View, Read by ED Physician, Normal, Heart, Lungs and Mediastinum Diagnostic Testing: Clinical Impression(s) from Imaging Studies Chest X-Ray 08/24/22 19:43 IMPRESSION: 1. No evidence of acute cardiopulmonary process Electronically Signed: Watson Cosby MD at 20:04 EDT , Chest CTA 08/24/22 23:05 IMPRESSION: undefined EKG Initial EKG: Attestation: I personally reviewed and interpreted this EKG as follows: Interpretation: Sinus Tachycardia (Sinus tachycardia at 102 with first-degree AV block. No acute ischemia.) Treatment and Re-Evaluation Narrative: Patient sitting upright in bed no acute distress. Patient is no longer tachycardic at the time of my exam and is not hypoxic. Lab work reveals white count 11.1. No left shift noted. Chemistry studies negative. Troponin normal but D-dimer slightly elevated at 0.51. Given the nature of her pain and history of lupus anticoagulant CTA of the chest is obtained. This reveals no evidence of pulmonary embolism. I believe the patient may have pulled a deep muscle as she has been coughing with her URI. She received [facility]. Return instructions to be provided. Discharge Plan Triage Chief Complaint: Shortness of Breath ED Provider: Isabel Barrow Dx/Rx/DC Orders Clinical Impression: URI (upper respiratory infection), Back strain Instructions: ED Back Sprain/Strain, ED URI, Viral, No Abx (Adult) Prescriptions: No Action topiramate [Topamax] 100 mg tablet 100 mg PO BID sertraline [Zoloft] 50 mg tablet 50 mg PO QDAY ropinirole [Requip] 0.5 mg tablet 0.5 mg PO BID ParaGard T 380A 380 square mm intrauterine device 1 device intrauterine ONCE Rx Instructions: as a single dose losartan 100 mg tablet 100 mg PO DAILY Qty: 90 3RF amlodipine 5 mg tablet 5 mg PO DAILY Qty: 90 3RF azithromycin 250 mg tablet 250 mg PO QDAY Qty: 6 0RF Rx Instructions: 2 tablets today, then 1 tablet daily on days 2 through 5 benzonatate 200 mg capsule 200 mg PO TID PRN (Reason: cough) Qty: 20 0RF ferrous sulfate 325 mg (65 mg iron) tablet 325 mg PO DAILY clotrimazole-betamethasone 1-0.05 % cream 1 applic topical BID PRN (Reason: .) ergocalciferol (vitamin D2) [Vitamin D2] 1,250 mcg (50,000 unit) Capsule 1,250 mcg PO TU Primary Care Provider: Sue Mayo Referrals: Sue Mayo DO [Primary Care Provider] - 1-2 Weeks Disposition Disposition: Home, Self Care
[2022-08-24 22:39] LABS: Troponin-I HS 4 pg/mL (3.0-54.0)
[2022-08-24 23:02] VITALS: RESP 16; O2SAT 99
[2022-08-24 23:02] LABS: D-Dimer Quantitative (DVT/PE) 0.51 FEU/ug/m (0.27-0.49)
--- NOTE | 2022-08-24 23:05 | CT_ITS ---
STUDY: CTA CHEST REASON FOR EXAM: Female, 37 years old. shoulder pain, SOB, elevated d-dimer RADIATION DOSAGE (If Supplied By Facility): CTDIvol = ( 24.53 ) mGy, DLP = ( 536.98 ) mGycm TECHNIQUE: The examination was performed with the intravenous administration of IV 100mL Isovue-370. Post-processing of the angiographic images was performed, with multiplanar reformation and 3D reconstruction. Individualized dose optimization techniques were used for this CT. COMPARISON: Chest radiograph of 08/24/2022 FINDINGS: Tubes and lines: 1. No life-support noted. CTA: PULMONARY ARTERIES: There is normal configuration and contrast opacification of pulmonary outflow tract, main pulmonary arteries, segmental and intersegmental pulmonary arteries bilaterally without evidence of intraluminal filling defects. AORTIC ARCH: The aortic arch and descending aorta have normal configuration. No evidence of dissection or aneurysmal dilatation. HEART: Cardiac contour is normal. No evidence pericardial effusion. CT CHEST: LUNGS: [Unremarkable. No mass. No consolidation. PLEURAL SPACES: Unremarkable, no effusion or pneumothorax.. MEDIASTINUM AND LYMPH NODES: Unremarkable. No significant adenopathy. BONES: Unremarkable ABDOMEN: Within normal limits. Other: None IMPRESSIONS: 1. No CTA evidence of pulmonary embolism. 2. No CTA evidence of aortic aneurysm or dissection 3. Normal CT appearance of the heart and pericardium. 4. No focal infiltrate consolidation or effusion noted. Electronically Signed: Watson Cosby MD at 23:51 EDT , CT/CTA Chest W/WO Contrast IMPRESSION: undefined
[2022-08-24 23:07] LABS: Internal QC Validated? YES +Cl - CLEAR BKGD; Pregnancy, Serum, hCG Quali. NEGATIVE Negative
[2022-08-25 00:09] VITALS: PULSE 86; RESP 16; O2SAT 98
== END 2022-08-25 00:12 | disposition home or self-care (01) ==
PROVIDERS: Emergency Provider Emergency Medicine; PCP Family Medicine; Visit Provider Emergency Medicine
DX: J06.9 Acute upper respiratory infection, unspecified (principal); S39.012A Strain of muscle, fascia and tendon of lower back, initial encounter; Z86.16 Personal history of COVID-19; X58.XXXA Exposure to other specified factors, initial encounter
CPT/HCPCS: 71045; 71275; 80048; 84484; 84703; 85025; 85379; 87811; 93005; 94760; 99283; Q9967; A4216

== ENCOUNTER → 2023-07-26 | Outpatient (CLI) | payer OTHER, SELFPAY ==
--- NOTE | 2023-07-26 18:30 | STRESSREP_ITS ---
Stress Test Report Exercise myocardial perfusion stress test. 38-year-old lady with a history of chest pain Stress protocol: Resting EKG demonstrates normal sinus rhythm with a rate of 82 bpm resting blood pressure is 162/101 mmHg. The patient exercised according to the regular Gaudencio protocol for a total duration of 6minutes attaining a maximum heart rate of 176 bpm which was 95% of maximum predicted heart rate; the maximum workload was 7.2 metabolic equivalents. At rest there were no ST or T wave changes noted to suggest ischemia and at peak exercise upsloping ST changes only were noted which did not meet the criteria for ischemia. No clinical angina was noted the test was terminated due to the target heart rate being achieved/fatigue. The peak b lood pressure was 212/60 mmHg. Rate-pressure product was [address]. Myocardial perfusion protocol. 14.8 mCi of technetium 99m sestamibi was injected at rest. The patient exercised according to regular Gaudencio protocol for total duration of 6 minutes and at peak exercise 44.8 mCi of technetium 99m sestamibi was injected stress images were obtained stress and rest images were reconstructed in comparing the short axis vertical long and horizontal long axis. Gated images were also obtained. Perfusion SPECT analysis: Review of the stress images demonstrate normal uptake of tracer noted in all areas of the myocardium. The resting images similarly demonstrate normal uptake of tracer noted in all areas of the myocardium. No areas of reversibility are noted to suggest ischemia no previous infarct was noted. Gated SPECT analysis: The gated ejection fraction is 75%. Conclusion: Normal exercise myocardial perfusion stress test at a moderate workload Preserved ejection fraction.
== END | disposition home or self-care (01) ==
LOC: CVS 06:16
PROVIDERS: PCP Family Medicine; Referring Provider Physician Assistant Medical; Visit Provider Physician Assistant Medical
DX: R06.09 Other forms of dyspnea (principal); I10 Essential (primary) hypertension; G47.33 Obstructive sleep apnea (adult) (pediatric)
CPT/HCPCS: 78452; 93017; A9500; A4216

== ENCOUNTER → 2023-07-27 | Outpatient (CLI) | payer OTHER, SELFPAY | END | disposition home or self-care (01) | LOC: SL 20:10 | PROVIDERS: PCP Family Medicine; Visit Provider Physician Assistant Medical | DX: G47.33 Obstructive sleep apnea (adult) (pediatric) (principal); R06.09 Other forms of dyspnea; I10 Essential (primary) hypertension | CPT/HCPCS: 95811 ==

== ENCOUNTER 2024-06-09 16:30 | Outpatient (RCR) | payer OTHER, SELFPAY ==
--- NOTE | 2024-04-23 12:36 | HP.PTEVAL_ITS ---
Patient's Visit Information Visit Information Visit Information: PAZ OBANDO is a 39 year old F referred to Physical Therapy by Dr. Ran Diamond MD with a diagnosis of R KNEE PAIN AND PATELLOFEMORAL JOINT INSTABILITY. Date of Evaluation: 04/23/24 Physical Therapist: Lindsay Serna, PT, Cert MDT Visit Plan Frequency: 2-3x /Week Duration: 4-6 Weeks Plan: *PATELLAR STABILIZING BRACE ON IN WT BEARING X 6 WKS* FOLLOW PROTOCOL FROM [facility] IN WORKROOM FOR NON- OPERATIVE PATELLAR DISLOCATION REHAB IF ESTIM WITH CP X FIRST 6-8 VISITS. US NEUROMUSCULAR ES OF VMO IF NEEDED. SINGLE LEG STANCE, FORWARD STEP UPS AND WALL SITS ONLY (AND TOLERATED THAT WERE GIVEN FIRST VISIT) FROM PHASE II UNTIL AT LEAST 05/14/24 WHEN PATIENT IS 4 WKS POST INJURY. FIRST FOLLOW UP VISIT: HEP CHECK AND CONSIDER ADDING BIKE, BALL SQUEEZE TO BRIDGING, AND ISOMETRIC HS SETS. 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 Present symptoms: INTERMITTENT R KNEE CATCHING - DAILY. THE PAIN IS ON THE OUTSIDE OF THE KNEE AND THERE IS A CONSTANT FEELING OF SWELLING. ONLY ONE ORIGINAL EPISODE OF DISLOCATION - RELOCATED ON ITS OWN. Present since: ONE WEEK AGO Pain Scale: WORST 6/10, LEAST 1-2/10 Currently: 1/10 Is it getting better, worse or staying the same: GETTING BETTER Commenced as a result of: JUST STANDING UP Symptoms at onset: KNEE CAP DISLOCATED Worse: BENDING IT TOO FAR, TWISTING ON R LEG Better: RESTING IT, IBUPROFEN Disturbed sleep: NO Previous history/Previous treatment: H/O R KNEE popping FOR A COUPLE OF YEARS IF SITS WITH KNEE BENT FOR TOO LONG BUT KNEE CAP HAS NEVER DISLOCATED BEFORE. NO PRIOR KNEE TREATMENT Treatment this episode: KNEE BRACE ISSUED BY DR. DIAMOND YESTERDAY - DID NOT WEAR TODAY BECAUSE RUBBING ON OTHER LEG. WEARING KNEE SLEEVE THAT WAS PURCHASED OTC. Gait: ABLE TO WALK NORMALLY. Bowel or Bladder Dysfunction: NO Accidents: NO Unexplained weight loss: NO Imaging: R KNEE X-RAY. PMH/Recent major surgery: BMI greater than 40 COVID-19 (11/21/21) Lupus anticoagulant disorder Essential (primary) hypertension Morbid obesity Contraception management Restless legs Chronic headaches Hypokalemia Objective Objective: THIS PATIENT AMBULATES INDEP'LY INTO PT WITH NO GROSS DEVIATIONS NOTED WEARING A R KNEE SLEEVE. SHE IS ABLE TO INDEP'LY TRANSFER FROM SIT TO STAND, SIT TO SUPINE, SUPINE TO PRONE AND REVERSE. Sensory deficit: MAN LE LIGHT TOUCH SENSATION IS GROSSLY INTACT AND SYMMETRICAL ROM deficit: FULL R KNEE EXTENSION TO 115 DEG FLEXION COMPARED TO 130 DEG FLEX L KNEE. THERE IS R KNEE CREPITUS AND C/O PAIN WITH FLEXION. Motor deficit: L LE 5/5. R LE 5/5 EXCEPT L KNEE 4/5. Core strength: FAIR Palpation: NO ACUTE TENDERNESS R KNEE AND GOOD PATELLAR MOBILITY BUT THERE IS R KNEE SWELLING. Circumference Measurements: R Knee Jt. Midline 48 cm compared to L Knee 45.5 cm. TREATMENT: HEP INSTRUCTION: SLR'S, SLR'S W/ER, SDLY HIP ABD, BRIDGING, PRONE QUAD STRETCH, SLS, FORWARD STEP UPS, WALL SITS. WRITTEN HEP INSTRUCTIONS PROVIDED. PATIENT TOLERATED INITIAL EX'S WELL WITH WEAKNESS AND TIGHTNESS EVIDENT. Special Tests R Knee Marisa - ACL: Negative R Knee Anterior Drawer - ACL: Negative R Knee Posterior Drawer - PCL: Negative R Knee Valgus - MCL: Negative R Knee Varus - LCL: Negative R Knee Patellar Apprehension - PFS: Negative R Knee Patellar Grind - PFS: Positive Balance/Special Test Scores Lower Extremity Functional Score: 65 Goals Goal 1:: DECREASE C/O R KNEE PAIN BY AT LEAST 75% TO EASE ADL'S. Goal 2:: PATIENT WILL HAVE DECREASED EDEMA IN RLE SYMMETRICAL TO LLE. Goal Time Frame: 4-6 Weeks Goal 3:: PATIENT WILL HAVE INCREASED PAINFREE R KNEE FLEXION ROM SYMMETRICAL TO LLE Goal Time Frame: 4-6 Weeks Goal 4:: PATIENT WILL NOT HAVE ANY EPISODES OF PATELLA DISLOCATION FOR 4 WEEKS Goal Time Frame: 4-6 Weeks Goal 5:: INDEP HEP. Goal Time Frame: 4-6 Weeks Rehabilitation Potential Physical Therapy Diagnosis: THIS PATIENT PRESENTS TO PT WITH R KNEE SWELLING, CREPITUS, WEAKNESS, DECREASED FLEXION ROM AND C/O PAIN LIMITING FUNCTIONAL ACTIVITIES. Rehabilitation Potential: Good Anticipated Interventions Patient/Client Instruction: Educate patient on: Condition, Plan of Care and Risk Factors For the Purpose of:: To improve self management Therapeutic Exercise to Include: Strength training, Flexibilty training, Gait and locomotor training, Neuromotor development and In an aquatic setting For the Purpose of:: To decrease pain, To increase ROM, To improve muscle performance and motor function, To increase tolerance to activity/condit ion/position, To improve ability of physical actions for home/community/work/leisure and To improve gait and locomotor functions Cryotherapy (ice pack, ice massage): Yes Thermo therapy (hot pack): Yes Ultrasound (thermal/non thermal): Yes For the Purpose of:: To decrease pain Text: Thank you for the opportunity to evaluate your patient. For Medicare and Medicare HMO plans, please review the plan of care and approve it. It will need to be FAXED BACK to us at [phone] for Medicare purposes. For Medicare only, by signing this I certify the plan of care. Please let me know if there are questions or concerns regarding this plan of care. Physician Signature: Date:
--- NOTE | 2024-05-26 19:02 | HP.PTREVAL ---
Re-Evaluation Intro: Dr. Ran Diamond MD, It has been my pleasure to treat PAZ OBANDO over the last 9 visits for R KNEE PAIN AND PATELLOFEMORAL JOINT INSTABILITY 04/16. Please see the progress note below for an update on the physical therapy plan of care! Subjective Subjective: PATIENT REPORTS SHE IS DOING GOOD. STATES SHE STOPPED WEARING HER BRACE OVER THE WEEKEND AND DID A LOT OF STANDING AT A CONCERT WITH NO ISSUES. REPORTS HER KNEE JUST GETS A LITTLE SORE IN A FULL SQUAT AND IF SHE PUTS A LOT OF PRESSURE ON IT TO DO THINGS LIKE KNEELING ON IT TO GET IN BED. Objective Objective/Function: THIS PATIENT IS MAKING GOOD PROGRESS WITH PT AND IS A GOOD CANDIDATE TO CONTINUE. SHE HAS FULL PAINFREE ROM OF THE LEFT KNEE NOW, HAS NO SWELLING, HAS WEANED OUT OF HER BRACE AND HAS HAD NO EPISODES OF DISLOCATIONS. SHE IS APPROPRIATE TO CONTINUE STRENGTHENING. PATIENT IS AGREEABLE. Plan Plan Plan: CONTINUE PT 2X'S A WK X 3 WKS OUT OF BRACE TOLERATED. FOLLOW PHASE II IN PROTOCOL FROM [facility] IN WORKROOM FOR NON-OPERATIVE PATELLAR DISLOCATION REHAB DO NOT PROGRESS PAST PHASE II PLEASE AND GIVE HEP FOR BETWEEN VISITS AND DISCHARGE. DO NOT PUSH PATIENT PAST HER DESIRED ACTIVITY LEVEL OR PLOF. Balance/Gait/Functional tests Balance/Special Test Scores Lower Extremity Functional Score: 76 Goals Goals Goal 1:: DECREASE C/O R KNEE PAIN BY AT LEAST 75% TO EASE ADL'S. Goal Progress: Goal Met Goal 2:: PATIENT WILL HAVE DECREASED EDEMA IN RLE SYMMETRICAL TO LLE. Goal Time Frame: 4-6 Weeks Goal Progress: Goal Met Goal 3:: PATIENT WILL HAVE INCREASED PAINFREE R KNEE FLEXION ROM SYMMETRICAL TO LLE Goal Time Frame: 4-6 Weeks Goal Progress: Goal Met Goal 4:: PATIENT WILL NOT HAVE ANY EPISODES OF PATELLA DISLOCATION FOR 4 WEEKS Goal Time Frame: 4-6 Weeks Goal Progress: Goal Met Goal 5:: INDEP HEP. Goal Time Frame: 4-6 Weeks Goal Progress: Progressing Goal 6:: NEW GOAL: PATIENT WILL SUCCESSFULLY COMPLETE PHASE II EX'S OF THE [facility]TH[facility] PROTOCOL FOR NON OPERATIVE PATELLAR DISLOCATION TO HELP RESTORE PLOF. Goal Time Frame: 2-4 Weeks Anticipated Interventions Anticipated Interventions Patient/Client Instruction: Educate patient on: Condition, Plan of Care and Risk Factors For the Purpose of:: To improve self management Therapeutic Exercise to Include: Strength training, Flexibilty training, Gait and locomotor training, Neuromotor development and In an aquatic setting For the Purpose of:: To decrease pain, To increase ROM, To improve muscle performance and motor function, To increase tolerance to activity/condition/position, To improve ability of physical actions for home/community/work/leisure and To improve gait and locomotor functions Cryotherapy (ice pack, ice massage): Yes Thermo therapy (hot pack): Yes Ultrasound (thermal/non thermal): Yes For the Purpose of:: To decrease pain Re-Evaluation Ending Re-evaluation ending: Please do not hesitate to contact me at [phone] by phone or if you have questions or concerns regarding this new plan of care! Sincerely, Lindsay Serna, PT, Cert MDT
--- NOTE | 2024-06-09 17:03 | HP.PTDCSUM_ITS ---
Discharge Summary D/C summary: It has been my pleasure to treat PAZ OBANDO referred by Dr. Ran Diamond MD, with the diagnosis of R KNEE PAIN AND PATELLOFEMORAL JOINT INSTABILITY 04/16 for a total of 12 visit(s). Discharge Date: 06/09/24 Please see the following information for a summary of their discharge status. Subjective Subjective: PATIENT REPORTS HER KNEE IS BACK TO WHERE IT WAS BEFORE IT POPPED OUT. IT STILL HURTS SOMETIMES IF SHE GETS INTO CERTAIN TIMES BUT NOT VERY OFTEN AT ALL AND SHE STATES IT HAS DEFINATELY BEEN STRENGTHENED AND CONDITIONED THROUGH THIS. FEELS GOOD AND WOULD LIKE TO BE DISCHARGED. Pain Right Knee: Pain Intensity (Out of 10): 0 Overall Improvement % Improvement: 100 Objective Objective/Function: THIS PATIENT HAS MADE GREAT PROGRESS WITH PT. SHE HAS FULL PAINFREE ROM OF THE LEFT KNEE NOW, HAS NO SWELLING, HAS WEANED OUT OF HER BRACE AND HAS HAD NO EPISODES OF DISLOCATIONS. HER R LE IS NOW EVEN STRONGER THAN THE LLE. ALTHOUGH SHE HASN'T PROGRESSED THROUGH ALL INITIALLY PLANNED PHASE 2 PROPRIOCEPTION ACTIVITIES YET, AFTER DISCUSSION ABOUT THIS WITH HER, SHE REPORTS SHE IS HAPPY WITH WHERE SHE IS AT AND WOULD LIKE TO BE DISCHARGED. STRENGTH MEASUREMENTS TODAY MEASURED IN AVG PEAK FORCE LBS: HIP FLEX R 52.6, L 48.2 HIP EXT R 47.1, L 43 HIP ABD R 50, L 43.1 KNEE FLEX R 45.6, L 41.4 KNEE EXT R 46.6, L 43.8 Goals Goal 1:: DECREASE C/O R KNEE PAIN BY AT LEAST 75% TO EASE ADL'S. Goal Progress: Goal Met Goal 2:: PATIENT WILL HAVE DECREASED EDEMA IN RLE SYMMETRICAL TO LLE. Goal Progress: Goal Met Goal 3:: PATIENT WILL HAVE INCREASED PAINFREE R KNEE FLEXION ROM SYMMETRICAL TO LLE Goal Progress: Goal Met Goal 4:: PATIENT WILL NOT HAVE ANY EPISODES OF PATELLA DISLOCATION FOR 4 WEEKS Goal Progress: Goal Met Goal 5:: INDEP HEP. Goal Progress: Progressing Goal 6:: NEW GOAL: PATIENT WILL SUCCESSFULLY COMPLETE PHASE II EX'S OF THE [facility] ORTHO PROTOCOL FOR NON OPERATIVE PATELLAR DISLOCATION TO HELP RESTORE PLOF. Goal Progress: Progressing Plan Plan: D/C D/C Information d/c sentence: If there are questions or concerns regarding this patient's physical therapy, please feel free to call me at [phone]. Thank you for the referral of this patient. Sincerely, Lindsay Serna, PT, Cert MDT Balance/Gait/Functional tests Balance/Special Test Scores Lower Extremity Functional Score: 78 Improvement % Improvement: 100
== END 2024-06-09 19:00 | disposition home or self-care (01) ==
LOC: PT 16:30
PROVIDERS: PCP Family Medicine; Referring Provider Orthopaedic Surgery Sports Medicine; Visit Provider Orthopaedic Surgery Sports Medicine
DX: M25.561 Pain in right knee (principal); M25.361 Other instability, right knee
CPT/HCPCS: 97014; 97110; 97162; 97530; G0283

== ENCOUNTER → 2024-09-22 | Outpatient (CLI) | payer OTHER, SELFPAY ==
[2024-09-22 15:05] LABS: Absolute Lymphocyte Count 2.19 X10^3/uL (0.83-4.51); Absolute Neutrophil Count 7.2 X10^3/uL (2.0-7.7); Basophil# 0.05 X10^3/uL; Basophil% 0.5 % (0-1); Hematocrit 40.9 % (37-47); Hemoglobin 12.9 g/dL (12.0-15.0); Lymphocyte # 2.19 X10^3/ul (0.83-4.51); Lymphocyte % 21.8 % (19-41); Mean Corp Hgb Conc 31.5 g/dL (32-36); Mean Corpuscular Hgb 25.8 pg (27.0-32.0); Mean Corpuscular Volume 81.8 fL (81-99); Mean Platelet Vol. 9.9 fl (6.2-12.0); Monocyte# 0.52 X10^3/uL; Monocyte% 5.2 % (0-10); NRBC Flagged by Analyzer 0 % (0-5); Neutrophil # 7.16 X10^3/uL (2.7-7.7); Neutrophil % 71.3 % (47-70); Platelet Count 376 K/mm3 (150-450); RBC Distribution Width SD 47.4 fl (35.1-43.9)
[2024-09-22 15:34] LABS: ALB/GLOB Ratio 0.9 RATIO (0.9-2.4); AST(SGOT) 22 U/L (15-37); Alanine Aminotransfer ALT/SGPT 40 U/L (13-56); Albumin, Serum 3.7 g/dL (3.2-5.0); Alkaline Phosphatase 82 U/L (45-117); Anion Gap 10 (5-15); BUN 12 mg/dL (7-18); BUN/Creat Ratio 16.8 RATIO (10-20); Calcium,Total 9.2 mg/dL (8.5-10.1); Chloride 104 mmol/L (98-107); Cholesterol 166 mg/dL (200); Creatinine, Serum 0.72 mg/dL (0.55-1.02); EST Glomerular Filtration Rate 97 mL/min (>60); Est Glom Filt Rate - Afr Amer 118 mL/min (>60); Glucose 78 mg/dL (74-106); High Density Lipoprotein 65 mg/dL; Potassium 3.5 mmol/L (3.5-5.1); Protein, Total 7.7 g/dL (6.4-8.2); Sodium Level 137 mmol/L (136-145); Triglycerides 75 mg/dL; Very Low Density Lipoprotein 15 mg/dL (5-40)
== END | disposition home or self-care (01) ==
PROVIDERS: PCP Family Medicine; Referring Provider Nurse Practitioner Family; Visit Provider Nurse Practitioner Family
DX: Z00.01 Encounter for general adult medical examination with abnormal findings (principal); E55.9 Vitamin D deficiency, unspecified; R10.11 Right upper quadrant pain; R10.31 Right lower quadrant pain; R10.32 Left lower quadrant pain
CPT/HCPCS: 36415; 74018; 80053; 80061; 82306; 85025

== ENCOUNTER 2025-04-13 06:52 | Outpatient (CLI) | payer OTHER, SELFPAY ==
--- NOTE | 2025-04-13 06:57 | CT_ITS ---
PROCEDURE: LIMITED CHEST CT CARDIAC ONLY REASON FOR EXAM: PREMATURE FAMILY HX OF CAD TECHNIQUE: CT was performed for coronary artery calcium scoring.. One or more dose reduction techniques were used (e.g., Automated exposure control, adjustment of the mA and/or kV according to patient size, use of iterative reconstruction technique). COMPARISON: None. CT/Limited Chest CT Cardiac Only IMPRESSION: Limited imaging of the lungs demonstrates no acute process. No pleural effusion or pneumothorax is seen in visualized areas. No adenopathy is noted. The visualized upper abdomen demonstrates no significant abnormality. Reading Location: [id number]
--- NOTE | 2025-04-27 18:45 | CA.SCORE ---
Calcium Scoring Date of Study:: 04/13/25 Indications Indications: FH Coronary Calcium Scoring: High-resolution Computed Tomographic imaging of the chest was performed on [04/13/25 ], with particular attention paid to the coronary arteries. Images from the examination were analyzed for the presence and extent of coronary artery calcification , using coronary calcium quantification software. The patient tolerated the procedure well and there were no complications. The results of the coronary calcification analysis are provided below. Findings Coronary Artery Left Main (LM): 0 Left Anterior Descending (LAD): 0 Left Circumflex (LCX): 0 Right Coronary Artery (RCA): 2.38 Total Agatston Score: 2.38 Percentile Rankin%-90% Calcium Scoring Interpretation: Different methods to categorize the overall amount of coronary plaque. Overall amount CAC SIS Visual of coronary plaque P1 Mild -100 <2 1-2 vessels with mild amount of plaque P2 Moderate 101-300 3-4 1-2 vessels with moderate amount, 3 vessels with mild amount of plaque P3 Severe 301-999 5-7 3 vessels with moderate amount, 1 vessel with severe amount of plaque P4 Extensive >1000 >8 2-3 vessels with severe amount of plaque Calcium Score: Mild: 1-2 vessels w/mild amount of plaque Conclusion: Mild atherosclerotic plaquing.
== END 2025-04-13 23:59 | disposition home or self-care (01) ==
PROVIDERS: PCP Family Medicine; Referring Provider Physician Assistant Medical; Visit Provider Physician Assistant Medical
DX: Z82.49 Family history of ischemic heart disease and other diseases of the circulatory system (principal)
CPT/HCPCS: 75571; 76380

== ENCOUNTER → 2025-06-25 | Outpatient (CLI) | payer OTHER, SELFPAY | END | disposition home or self-care (01) | LOC: SL 09:27 | PROVIDERS: PCP Family Medicine; Referring Provider Nurse Practitioner Acute Care; Visit Provider Nurse Practitioner Acute Care | DX: G47.33 Obstructive sleep apnea (adult) (pediatric) (principal) ==